=== PATIENT | male | born 1980 | race Two or more races ===

== ENCOUNTER → 2021-04-14 | Outpatient (CLI) | payer OTHER ==
--- NOTE | 2021-04-14 10:00 | RAD ---
XR FINGER(S)_LEFT 2+VIEWS_RT DATE: 04/14/2021 9:10 AM INDICATION: TRAUMA X2 WEEKS, 5TH DIGIT SMASHED COMPARISON: None. FINDINGS: Bones: There is no evidence of acute fracture or dislocation. Joints: The joint spaces are normal. Miscellaneous: None. IMPRESSION: No evidence of acute fracture. Electronically signed by: Jalil Cisneros MD (04/14/2021 9:58 AM) [id number]
== END ==
LOC: RAD 09:01
PROVIDERS: ATTEND Nurse Practitioner Family
DX: S69.92XA Unspecified injury of left wrist, hand and finger(s), initial encounter (principal); X58.XXXA Exposure to other specified factors, initial encounter; Y93.89 Activity, other specified; Y92.89 Other specified places as the place of occurrence of the external cause; Y99.8 Other external cause status
CPT/HCPCS: 73140

== ENCOUNTER → 2021-06-29 | Day surgery (SDC) | payer OTHER ==
[~2021-06-29] MED LIST: ATOR20TA58 PO; BUPIVACAINE-EPI 0.25%-1:200000 MPF 30 ML VIAL. ONE; IPRATRPIUM/ALBUTEROL 0.5/2.5MG 3 ML NEBU. NEB PRN; IV RINGERS SOLUTION,LACTATED 1,000 ML IV SCH; LIDOCAINE 2% PF 5 ML VIAL. ONE; METAMUCIL PO; MIDAZOLAM HCL PF 2 MG/2 ML VIAL. IV ONE; ONDANSETRON PF 4 MG/2 ML VIAL. IV PRN; PROPOFOL 10,000 MCG/ML (20ML) VIAL IV ONE
--- NOTE | 2021-06-29 10:40 | PDOC1 ---
History of Present Illness Reason for Visit: Colonoscopy History of Present Illness 40-year-old male who is recently complaining of prolapsing bleeding hemorrhoids he also had a fistulectomy a year ago Juan and a colonoscopy at that time was found to have a polyp which was removed was recommended that he have a follow-up colonoscopy in 2 to 3 years Chief Complaint: Rectal bleeding Allergies: Coded Allergies: No Known Drug Allergies (Unverified , 06/29/21) Past Medical History Cardiac: HTN Pulmonary: No pertinent hx GI: No pertinent hx Heme/Onc: No pertinent hx Hepatobiliary: No pertinent hx Psych: No pertinent hx Musculoskeletal: No pertinent hx Rheumatologic: No pertinent hx Infectious disease: No pertinent hx ENT: No pertinent hx Renal/: No pertinent hx Endocrine: No pertinent hx Dermatology: No pertinent hx Past Surgical History: Other (Fistulectomy) Family History: No pertinent hx Past Social History Smoke: No Alcohol: none Lives: Alone Review of Systems Review Of Systems Fourteen system , review of systems has been reviewed. See HPI for pertinent positives and negative responses, other mcnulty all other systems are negative, non pertinent or non contributory Gastrointestinal: YES: Melena Medications Current Medications Ondansetron HCl (Zofran) 4 mg PRN Q6HRS PRN IV Nausea, 1st Choice; Start 06/28/21 at 10:15; Stop 06/29/21 at 10:14; Status DC Albuterol/ Ipratropium (Duoneb) 3 ml 1X PRN PRN NEB Shortness of Breath; Start 06/28/21 at 10:15; Stop 06/29/21 at 10:14; Status DC Midazolam HCl (Versed) 2 mg 1X ONCE IV ; Start 06/28/21 at 10:15; Stop 06/28/21 at 10:16; Status DC Lactated Ringer's 1,000 ml @ 125 mls/hr Q8H IV Last administered on 06/29/21at 09:58; Start 06/28/21 at 10:15; Stop 06/28/21 at 22:14; Status DC Bupivacaine HCl/ Epinephrine Bitart (Sensorcaine-Epi 0.25%-1:119200 Mpf) 30 ml STK-MED ONCE .ROUTE ; Start 06/29/21 at 07:07; Stop 06/29/21 at 07:07; Status DC Fentanyl Citrate (Fentanyl 2ml Vial) 100 mcg STK-MED ONCE .ROUTE ; Start 06/29/21 at 08:17; Stop 06/29/21 at 08:18; Status DC Active Scripts Active Reported [metamucil powder] 3.4 G PO DAILY Atorvastatin Calcium 20 Mg Tablet 1 Tab PO HS Exam Vital Signs Vital Signs Date Time Temp Pulse Resp B/P (MAP) Pulse Ox O2 Delivery O2 Flow Rate FiO2 06/29/21 09:43 97.9 74 19 143/93 (110) 98 Room Air General Appearance: Alert, Oriented X3, Cooperative, No acute distress HEENT: Atraumatic, EOMI Respiratory: Clear to auscultation, Normal air movement Heart: Regular rate, No murmurs Abdominal: Normal bowel sounds, Soft, No tenderness Extremities: No edema Skin: No significant lesion Neuro: Normal gait, Normal speech Psych/Mental Status: Mental status NL Assessment/Plan Assessment/Plan Rectal bleeding history of polyps plan colonoscopy possible hemorrhoidal banding COURSE Allergies Coded Allergies Type Severity Reaction Last Updated Verified No Known Drug Allergies 06/29/21 No Current Medications Medications (Trade) Dose Ordered Sig/Josette Route PRN Reason Start Time Stop Time Status Last Admin Dose Admin Bupivacaine HCl/ Epinephrine Bitart (Sensorcaine-Epi 0.25%-1:879270 Mpf) 30 ml STK-MED ONCE .ROUTE 06/29/21 07:07 06/29/21 07:07 DC Fentanyl Citrate (Fentanyl 2ml Vial) 100 mcg STK-MED ONCE .ROUTE 06/29/21 08:17 06/29/21 08:18 DC Orders Procedure Category Date Status Time Bupivac-Epi PHA 06/29/21 Complete 0.25%-1:607233 Mpf 07:07 Fentanyl Pf (Fentanyl PHA 06/29/21 Complete 2ml Vial) 08:17 Vital Signs Date Time Temp Pulse Resp B/P (MAP) Pulse Ox O2 Delivery O2 Flow Rate FiO2 06/29/21 09:43 97.9 74 19 143/93 (110) 98 Room Air Justification of Admission: Justification of Admission: Justification of Admission Dx: N/A JACK BANERJEE MD Jun 29, 2021 10:40
[2021-06-29 12:30] VITALS: BP 123/81
== END | disposition home or self-care (01) ==
LOC: SURG 09:32
PROVIDERS: ATTEND Surgery
DX: K62.5 Hemorrhage of anus and rectum (principal); K64.2 Third degree hemorrhoids; K63.89 Other specified diseases of intestine; K57.30 Diverticulosis of large intestine without perforation or abscess without bleeding; I10 Essential (primary) hypertension; Z86.010 Personal history of colon polyps; Z87.891 Personal history of nicotine dependence; Z79.899 Other long term (current) drug therapy; Z98.890 Other specified postprocedural states
CPT/HCPCS: 45378; J2001; J2704; J3490; J7120; G0105; J3010